=== PATIENT | female | born 1960 | race Asian ===

== ENCOUNTER → 2018-08-20 12:34 | Outpatient (CLI) | payer OTHER, SELFPAY ==
--- NOTE | 2018-08-20 | DI.MG.S_ITS ---
BILATERAL DIGITAL SCREENING MAMMOGRAM 3D/2D WITH CAD: 08/20/2018 CLINICAL: Routine screening. Comparison is made to exams dated: 03/17/2016 mammogram, 01/14/2014 mammogram, and 12/31/2012 mammogram - [facility]. There are scattered fibroglandular elements in both breasts. Current study was also evaluated with a Computer Aided Detection (CAD) system. No significant masses, calcifications, or other findings are seen in either breast. There has been no significant interval change. IMPRESSION: NEGATIVE There is no mammographic evidence of malignancy. A 1 year screening mammogram is recommended. This exam was interpreted at Station ID: [id number]. NOTE: For mammograms, a report in lay terms will be sent to the patient. Approximately 15% of breast malignancies will not be visualized mammographically. In the management of a palpable breast mass, a negative mammogram must not discourage biopsy of a clinically suspicious lesion. Electronically Signed By: Cain izaguirre/ahmet:08/20/2018 16:40:29 letter sent: Normal Exam ACR BI-RADS Category 1: Negative [id number]
== END ==
PROVIDERS: Visit Provider Family Medicine
DX: Z12.31 Encounter for screening mammogram for malignant neoplasm of breast (principal)
CPT/HCPCS: 77063; 77067

== ENCOUNTER 2019-03-12 12:36 | Emergency (ER) | payer OTHER, SELFPAY ==
[2019-03-12 13:26] VITALS: BP 106/77; PULSE 79; RESP 16; TEMP 36.8; O2SAT 97
--- NOTE | 2019-03-12 13:26 | ED.SKABFB ---
HPI - Skin/Abscess/Foreign Bdy <Bina Nichole PA-C - Last Filed: 03/12/19 15:00> General Chief complaint: Skin/Abscess/Foreign Body Stated complaint: INFECTION AFTER SURGERY Time Seen by Provider: 03/12/19 13:16 Source: patient and family Mode of arrival: Ambulatory Limitations: no limitations History of Present Illness HPI narrative: This 59 year old female was sent to ED for possible surgical wound infection. Every 4 or 5 months she has stones and sludge removed from her liver due to chronic pyogenic cholangitis. This is done through interventional radiology. She last had this done a few days ago, removed her bandage this morning when showering and noted that the wound looked somewhat red, and when she pressed on it she was able to express some pus. She states other than the wound being slightly more tender than it usually is after this procedure, she has not noted any problems. She has not noted any fever. The site is a little bit itchy. She has been feeling at baseline aside from above. She spoke with her IR who does procedures regularly and was advised to come to ED, likely needing IV Bactrim. She does have oral Bactrim at home, states that she did miss some doses of this, took 1 tab yesterday, 1/2 this a.m. Notes multiple antibiotic allergies (on her list allergies include vancomycin, ofloxacin, and penicillin). Related Data Home Medications Medication Instructions Recorded Confirmed cetirizine 10 mg PO QPM #0 02/03/17 fluticasone propionate [Flonase 1 spray INTRANASAL QDAY #0 02/03/17 Allergy Relief] sulfamethoxazole-trimethoprim 1 tab PO BID #0 02/03/17 Allergies Allergy/AdvReac Type Severity Reaction Status Date / Time acetaminophen [ACETAMINOPHEN] Allergy Unknown Unverified 07/26/17 12:48 codeine [CODEINE] Allergy Unknown Unverified 07/26/17 12:48 ibuprofen [IBUPROFEN] Allergy Unknown Unverified 07/26/17 12:48 ofloxacin [OFLOXACIN] Allergy Unknown Unverified 07/26/17 12:48 Penicillins [PENICILLINS] Allergy Unknown Unverified 07/26/17 12:48 vancomycin [VANCOMYCIN] Allergy Unknown Unverified 07/26/17 12:48 Review of Systems <Bina Nichole PA-C - Last Filed: 03/12/19 15:00> Review of Systems ROS Unobtainable: All systems reviewed & are unremarkable except as noted in HPI and below Patient History <Bina Nichole PA-C - Last Filed: 03/12/19 15:00> Medical History (Updated 03/12/19 @ 14:45 by Bina Nichole PA-C) Recurrent pyogenic cholangitis (Chronic) Surgical History (Updated 03/12/19 @ 14:04 by Bina Nichole PA-C) History of surgery of liver (Chronic) Social History (Updated 03/12/19 @ 14:05 by Bina Nichole PA-C) additional social history: Non smoker, lives at home with Exam <Bina Nichole PA-C - Last Filed: 03/12/19 15:00> Narrative Exam Narrative: GENERAL APPEARANCE: Patient sitting comfortably, in no distress. HEENT: PERRL, EOMI, no scleral icterus NECK: Supple LUNGS: Clear to auscultation bilaterally. HEART: Rate and rhythm regular, normal S1 and S2, no S3 or S4. ABDOMEN: Soft, nontender, nondistended, bowel sounds present x 4 quadrants EXTREMITIES: No edema, no cyanosis DERMATOLOGIC: Faded midline surgical scar, and on the right side there is a newer appearing surgical site with some dusky erythema to 1 1/2 cm beyond distal margin, not warm to touch, I am able to express a drop of serous drainage but no purulence drainage. This feels slightly indurated. At the borders of the dressing there is some erythema where adhesive was intact NEUROLOGIC: Alert and oriented with normal speech and coordination Initial Vital Signs Initial Vital Signs: Vital Signs Temperature 98.3 F 03/12/19 13:26 Pulse Rate 79 03/12/19 13:26 Respiratory Rate 16 03/12/19 13:26 Blood Pressure 106/77 03/12/19 13:26 Pulse Oximetry 97 03/12/19 13:26 <Nhi James DO - Last Filed: 03/13/19 07:33> Initial Vital Signs Initial Vital Signs: Vital Signs Temperature 98.3 F 03/12/19 13:26 Pulse Rate 79 03/12/19 13:26 Respiratory Rate 16 03/12/19 13:26 Blood Pressure 106/77 03/12/19 13:26 Pulse Oximetry 97 03/12/19 13:26 Course <Bina Nichole PA-C - Last Filed: 03/12/19 15:00> Course Additional Information: I spoke with patient's IR who does her procedures and referred her here (Dr. Mcdaniels) and reviewed findings, VS. He is agreeable with plan to tx with oral abx. Patient is agreeable with plan as well Vital Signs Vital signs: Vital Signs - 8 hr 03/12/19 13:26 Temperature 98.3 F Pulse Rate 79 Respiratory Rate 16 Blood Pressure 106/77 Pulse Oximetry 97 <Nhi James DO - Last Filed: 03/13/19 07:33> Vital Signs Vital signs: Vital Signs - 8 hr 03/12/19 13:26 Temperature 98.3 F Pulse Rate 79 Respiratory Rate 16 Blood Pressure 106/77 Pulse Oximetry 97 MDM - Skin/Abscess/Foreign Bdy <Bina Nichole PA-C - Last Filed: 03/12/19 15:00> Lab Data Labs: Point of Care Testing Stool Occult Blood Positive <Nhi James DO - Last Filed: 03/13/19 07:33> Lab Data Labs: Point of Care Testing Stool Occult Blood Positive Discharge Plan Departure Patient Disposition: Home Clinical Impression: Cellulitis Qualifiers: Site of cellulitis: trunk Site of cellulitis of trunk: abdominal wall Qualified Code(s): L03.311 - Cellulitis of abdominal wall Discharge Date/Time: 03/12/19 14:55 Instructions: DI for Cellulitis -- Adult Activity Restrictions/Additional Instructions: It does look like you have a bit of skin infection around your surgical wound site today. I think that you got most of the pus out of this already, and I do not see anything else to drain right now. Please put a warm pack on it a few times a day to help express any drainage that may remain. Please restart your Septra that you already have, but take 1 pill twice daily, and we recommend that you have this rechecked either with your primary care provider or Dr. Mcdaniels in a few days as it will take about 72 hours to start to see the response (plan to take this for 7-10 days). If you have any acutely worsening symptoms in the interim such as worsening pain, swelling, rapidly spreading redness or new fever, you should return to the emergency department right away. Please remember to avoid touching or manipulating the wound at all, it is okay to continue using some antibiotic ointment if it helps the itching. Your skin was also reacting to the bandage and adhesive so try to avoid using any tape and adhesive where possible Prescriptions: No Action cetirizine 10 MG tablet 10 mg PO QPM Qty: 0 RF: 0 sulfamethoxazole-trimethoprim 800 MG/160 MG tablet 1 tab PO BID Qty: 0 RF: 0 fluticasone propionate [Flonase Allergy Relief] 9.9 ML spray,suspension 1 spray Intranasal QDAY Qty: 0 RF: 0 Referrals: Tj Mcdaniels M.D. [Other] Harmony Ashby DO [Non-Staff] -
--- NOTE | 2019-03-12 13:42 | PC.NURSE ---
[facility]. Has concerns of infection. skin appears irritated from bandage, patient reports itching at area of adhesive. patient reports squeezing out some puss from site earlier. Told to come in for abx. Denies fevers or chills. Area of redness noted to site, not hot or warm to touch. Small amount of serous drainage noted on gauze.
== END 2019-03-12 14:55 | disposition home or self-care (01) ==
PROVIDERS: Emergency Provider Internal Medicine
DX: L03.311 Cellulitis of abdominal wall (principal); Z98.890 Other specified postprocedural states
CPT/HCPCS: 82272; 99282; 99283

== ENCOUNTER → 2021-01-25 14:59 | Outpatient (CLI) | payer OTHER, SELFPAY ==
--- NOTE | 2021-01-25 | DI.MG.S_ITS ---
BILATERAL DIGITAL SCREENING MAMMOGRAM 3D/2D WITH CAD: 01/25/2021 CLINICAL: Routine screening. Comparison is made to exams dated: 08/20/2018 mammogram - [facility], 03/17/2016 mammogram, and 01/14/2014 mammogram - [facility]. There are scattered fibroglandular elements in both breasts. Current study was also evaluated with a Computer Aided Detection (CAD) system. There is a new 0.6 cm irregular asymmetry in the left breast at 1 o'clock middle depth 6.6 cm from the nipple. No other significant masses, calcifications, or other findings are seen in either breast. IMPRESSION: INCOMPLETE: NEEDS ADDITIONAL IMAGING EVALUATION The new 0.6 cm irregular asymmetry in the left breast is indeterminate. Additional views with possible ultrasound are recommended. This exam was interpreted at Station ID: [id number]. NOTE: For mammograms, a report in lay terms will be sent to the patient. Approximately 15% of breast malignancies will not be visualized mammographically. In the management of a palpable breast mass, a negative mammogram must not discourage biopsy of a clinically suspicious lesion. Electronically Signed By: Rickie Yañez acr/:01/25/2021 15:51:41 letter sent: Additional Imaging Needed ACR BI-RADS Category 0: Incomplete 3340F
== END ==
PROVIDERS: PCP Family Medicine; Referring Provider Family Medicine; Visit Provider Family Medicine
DX: Z12.31 Encounter for screening mammogram for malignant neoplasm of breast (principal)
CPT/HCPCS: 77063; 77067

== ENCOUNTER → 2021-02-22 11:58 | Outpatient (CLI) | payer OTHER, SELFPAY ==
--- NOTE | 2021-02-22 | DI.US.S_ITS ---
LIMITED ULTRASOUND OF LEFT BREAST AND AXILLA: 02/22/2021 CLINICAL: Patient returns today to evaluate a focal asymmetry in the left breast. Comparison is made to exams dated: 02/22/2021 mammogram, 01/25/2021 mammogram, 08/20/2018 mammogram - [facility], and 03/17/2016 mammogram - [facility]. Color flow and real-time ultrasound of the left breast 1-2 o'clock, and axilla regions were performed on the areas of interest. There is a 0.6 cm x 0.3 cm x 0.3 cm oval cyst in the left breast at 2 o'clock posterior depth. This oval cyst is hypoechoic with internal echoes. This likely correlates with mammography findings. Color flow imaging demonstrates that there is no vascularity present. IMPRESSION: PROBABLY BENIGN The 0.6 cm x 0.3 cm x 0.3 cm oval cyst in the left breast likely represents a complicated cyst and is probably benign. Follow-up mammogram and ultrasound in 6 months are recommended. A follow-up mammogram and an ultrasound in 6 months are recommended to demonstrate stability. This exam was interpreted at Station ID: [id number]. Electronically Signed By: Ren Roman M.D. ddmello/:02/22/2021 13:15:05 letter sent: Followup Recommended Ultrasound BI-RADS: 3 Probably benign
--- NOTE | 2021-02-22 | DI.MG.S_ITS ---
UNILATERAL LEFT DIGITAL DIAGNOSTIC MAMMOGRAM 3D/2D WITH ADDITIONAL VIEWS: 02/22/2021 CLINICAL: Additional evaluation requested from prior study. Comparison is made to exams dated: 01/25/2021 mammogram, 08/20/2018 mammogram - [facility], and 03/17/2016 mammogram - [facility]. There are scattered fibroglandular elements in left breast. There is an oval low density focal asymmetry with an indistinct and circumscribed margin in the left breast at 2 o'clock middle depth. This is not significantly changed compared to prior studies. No other significant masses or calcifications are seen in the breast. IMPRESSION: INCOMPLETE: NEEDS ADDITIONAL IMAGING EVALUATION The oval low density focal asymmetry in the left breast is indeterminate. An ultrasound is recommended. Ultrasound will be performed immediately following the current exam. This exam was interpreted at Station ID: [id number]. NOTE: For mammograms, a report in lay terms will be sent to the patient. Approximately 15% of breast malignancies will not be visualized mammographically. In the management of a palpable breast mass, a negative mammogram must not discourage biopsy of a clinically suspicious lesion. Electronically Signed By: Ren Roman M.D. ddp/:02/22/2021 12:49:53 ACR BI-RADS Category 0: Incomplete 3340F
== END ==
PROVIDERS: PCP Family Medicine; Referring Provider Family Medicine; Visit Provider Family Medicine
DX: R92.8 Other abnormal and inconclusive findings on diagnostic imaging of breast (principal); N60.02 Solitary cyst of left breast
CPT/HCPCS: 76642; 77065; G0279

== ENCOUNTER → 2021-09-30 13:32 | Outpatient (CLI) | payer OTHER, SELFPAY ==
--- NOTE | 2021-09-30 | DI.US.S_ITS ---
LIMITED ULTRASOUND OF LEFT BREAST: 09/30/2021 CLINICAL: 6 month follow-up of cysts. Comparison is made to exams dated: 09/30/2021 mammogram, 02/22/2021 ultrasound, 02/22/2021 mammogram, 01/25/2021 mammogram, 08/20/2018 mammogram - [facility], and 03/17/2016 mammogram - [facility]. Color flow and real-time ultrasound of the left breast 1 o'clock region were performed. Siu scale images of the real-time examination were reviewed. There is a 0.7 cm x 0.3 cm x 0.3 cm oval complicated cyst in the left breast at 1 o'clock posterior depth 5 cm from the nipple. This oval complicated cyst displays internal echoes. This abnormality is not significantly changed and correlates with mammography findings. Color flow imaging demonstrates that there is no vascularity present. IMPRESSION: PROBABLY BENIGN Stable 0.7 cm complicated cyst in the left breast likely represents a complicated cyst and is probably benign. A follow-up mammogram and an ultrasound in 6 months is recommended to demonstrate stability. Patient will also be due for right mammogram at that time. Exam findings were conveyed to the patient. This exam was interpreted at Station ID: [id number]. Electronically Signed By: Dhruv Carlos M.D. [facility] [place]:09/30/2021 14:45:22 letter sent: Followup Recommended Ultrasound BI-RADS: 3 Probably benign
--- NOTE | 2021-09-30 | DI.MG.S_ITS ---
UNILATERAL LEFT DIGITAL DIAGNOSTIC MAMMOGRAM 3D/2D SHORT-TERM FOLLOW-UP: 09/30/2021 CLINICAL: Short term follow up for the left breast. Comparison is made to exams dated: 02/22/2021 mammogram, 01/25/2021 mammogram, 08/20/2018 mammogram - [facility], and 03/17/2016 mammogram - [facility]. There are scattered fibroglandular elements in left breast. There is an oval focal asymmetry with an indistinct and circumscribed margin in the left breast at 2 o'clock middle depth. This is not significantly changed. No other significant masses or calcifications are seen in the breast. IMPRESSION: INCOMPLETE: NEEDS ADDITIONAL IMAGING EVALUATION Focal asymmetry in the left breast is indeterminate. A targeted ultrasound is recommended and will immediately follow. This exam was interpreted at Station ID: [id number]. NOTE: For mammograms, a report in lay terms will be sent to the patient. Approximately 15% of breast malignancies will not be visualized mammographically. In the management of a palpable breast mass, a negative mammogram must not discourage biopsy of a clinically suspicious lesion. Electronically Signed By: Dhruv Carlos M.D. slc/:09/30/2021 13:57:31 ACR BI-RADS Category 0: Incomplete 3340F
== END ==
PROVIDERS: PCP Family Medicine; Referring Provider Family Medicine; Visit Provider Family Medicine
DX: R92.8 Other abnormal and inconclusive findings on diagnostic imaging of breast (principal); N60.02 Solitary cyst of left breast
CPT/HCPCS: 76642; 77065; G0279

== ENCOUNTER → 2022-05-24 11:57 | Outpatient (CLI) | payer OTHER, SELFPAY ==
--- NOTE | 2022-05-24 | DI.MG.S_ITS ---
BILATERAL DIGITAL DIAGNOSTIC MAMMOGRAM 3D/2D: 05/24/2022 CLINICAL: Short term follow up of the left breast, due for bilateral imaging. Comparison is made to exams dated: 09/30/2021 ultrasound, 09/30/2021 mammogram, 02/22/2021 ultrasound, 02/22/2021 mammogram, and 01/25/2021 mammogram - [facility]. There are scattered areas of fibroglandular density in both breasts (category b / 25%-50% glandular tissue). There is an oval focal asymmetry in the left breast at 1 o'clock middle depth. This is not significantly changed. No other significant masses, calcifications, or other findings are seen in either breast. IMPRESSION: INCOMPLETE: NEEDS ADDITIONAL IMAGING EVALUATION The oval focal asymmetry in the left breast is indeterminate. A targeted ultrasound is recommended and will immediately follow. Based on the Tyrer Cuzick model (a risk assessment model) the patient's lifetime risk is 4.8% and her 10 year risk is 2.1%. According to the ACR, ACS, and NCCN guidelines, an annual breast MRI exam along with mammogram is recommended if the patient's lifetime risk is 20% or greater. This exam was interpreted at Station ID: [id number]. NOTE: For mammograms, a report in lay terms will be sent to the patient. Approximately 15% of breast malignancies will not be visualized mammographically. In the management of a palpable breast mass, a negative mammogram must not discourage biopsy of a clinically suspicious lesion. Electronically Signed By: Dhruv Carlos M.D. slc/:05/24/2022 12:22:22 ACR BI-RADS Category 0: Incomplete 3340F
--- NOTE | 2022-05-24 | DI.US.S_ITS ---
LIMITED ULTRASOUND OF LEFT BREAST AND AXILLA: 05/24/2022 CLINICAL: Patient returns today to evaluate a focal asymmetry in the left breast. Comparison is made to exams dated: 05/24/2022 mammogram, 09/30/2021 ultrasound, 09/30/2021 mammogram, 02/22/2021 mammogram, 02/22/2021 ultrasound, and 01/25/2021 mammogram - [facility]. Color flow and real-time ultrasound of the left breast axilla were performed. Siu scale images of the real-time examination were reviewed. There is a 1.1 cm x 0.8 cm x 0.3 cm oval cyst in the left breast at 1 o'clock posterior depth 5 cm from the nipple. This oval cyst displays internal echoes. This abnormality is more prominent. Color flow imaging demonstrates that there is no vascularity present. Left axillary lymph nodes are within normal limits. IMPRESSION: PROBABLY BENIGN The 1.1 cm complicated cyst in the left breast is probably benign. A follow-up ultrasound in 6 months is recommended to demonstrate stability. Left axillary lymph nodes are within normal limits. Exam findings were conveyed to the patient. This exam was interpreted at Station ID: [id number]. Electronically Signed By: Dhruv Carlos M.D. slc/:05/24/2022 14:01:37 letter sent: Followup Recommended Ultrasound BI-RADS: 3 Probably benign
== END ==
PROVIDERS: PCP Family Medicine; Referring Provider Family Medicine; Visit Provider Family Medicine
DX: R92.8 Other abnormal and inconclusive findings on diagnostic imaging of breast (principal); N60.02 Solitary cyst of left breast
CPT/HCPCS: 76642; 77066; G0279

== ENCOUNTER → 2024-06-12 13:28 | Outpatient (CLI) | payer MEDICARE, SELFPAY ==
--- NOTE | 2024-06-12 13:37 | DI.MG.S_ITS ---
BILATERAL DIGITAL DIAGNOSTIC MAMMOGRAM 3D/2D SHORT-TERM FOLLOW-UP: 06/12/2024 CLINICAL: Short term follow up of the left breast, due for bilateral imaging. Comparison is made to exams dated: 05/24/2022 mammogram, 09/30/2021 mammogram, 02/22/2021 mammogram, and 01/25/2021 mammogram - [facility]. There are scattered areas of fibroglandular density (category b / 25%-50% glandular tissue). Redemonstration of previously described oval focal asymmetry in the left breast at 1 o'clock middle depth. This is not significantly changed. No other significant masses, calcifications, or other findings are seen in either breast. IMPRESSION: INCOMPLETE: NEED ADDITIONAL IMAGING EVALUATION The oval focal asymmetry in the left breast is indeterminate. An ultrasound is recommended for further evaluation and is scheduled to immediately follow this examination. Based on the Tyrer Cuzick model (a risk assessment model) the patient's lifetime risk is 4.5% and her 10 year risk is 2.1%. According to the ACR, ACS, and NCCN guidelines, an annual breast MRI exam along with mammogram is recommended if the patient's lifetime risk is 20% or greater. This exam was interpreted at Station ID: [id number]. NOTE: For mammograms, a report in lay terms will be sent to the patient. Approximately 15% of breast malignancies will not be visualized mammographically. In the management of a palpable breast mass, a negative mammogram must not discourage biopsy of a clinically suspicious lesion. Electronically Signed By: Cain William M.D. aty/:06/12/2024 14:09:31 letter sent: Additional Imaging Needed ACR BI-RADS Category 0: Incomplete: Need Additional Imaging Evaluation
--- NOTE | 2024-06-12 13:38 | DI.US.S_ITS ---
LIMITED ULTRASOUND OF LEFT BREAST AND AXILLA: 06/12/2024 CLINICAL: Short term follow up for the left breast. Comparison is made to exams dated: 06/12/2024 mammogram, 05/24/2022 ultrasound, 05/24/2022 mammogram, 09/30/2021 ultrasound, 09/30/2021 mammogram, and 02/22/2021 ultrasound - [facility]. Color flow and real-time ultrasound of the left breast 1 o'clock, and axilla regions were performed. Siu scale images of the real-time examination were reviewed. There is a 0.7 cm x 0.4 cm x 0.2 cm oval cyst in the left breast at 1 o'clock posterior depth 5 cm from the nipple. This oval cyst is hypoechoic with internal echoes and no posterior acoustic shadowing or enhancement. This abnormality is not significantly changed. Color flow imaging demonstrates that there is no vascularity present. There also is a new 0.3 cm x 0.3 cm x 0.3 cm oval mass in the left breast at 1 o'clock posterior depth 5 cm from the nipple. This oval mass is hypoechoic with mild peripheral echogenic fat. This correlates as an incidental finding. Color flow imaging demonstrates that there is no vascularity present. IMPRESSION: PROBABLY BENIGN The 0.7 cm x 0.4 cm x 0.2 cm oval cyst in the left breast at 1 o'clock posterior depth likely represents a complicated cyst and is probably benign. The new 0.3 cm x 0.3 cm x 0.3 cm oval mass in the left breast at 1 o'clock posterior depth is consistent with a fat lobule/focal fibrofatty breast tissue or fat necrosis and is probably benign. A follow-up left ultrasound in 6 months is recommended to demonstrate stability. Findings and recommendations were conveyed to the patient during today's evaluation. This exam was interpreted at Station ID: [id number]. Electronically Signed By: Cain William M.D. aty/:06/12/2024 14:52:22 letter sent: Followup Recommended ACR BI-RADS Category 3: Probably Benign
== END ==
PROVIDERS: PCP Family Medicine; Referring Provider Nurse Practitioner Family; Visit Provider Nurse Practitioner Family
DX: R92.8 Other abnormal and inconclusive findings on diagnostic imaging of breast (principal); N63.21 Unspecified lump in the left breast, upper outer quadrant; N60.02 Solitary cyst of left breast
CPT/HCPCS: 76642; 77066; G0279

== ENCOUNTER → 2024-07-31 10:38 | Outpatient (CLI) | payer MEDICARE, SELFPAY ==
--- NOTE | 2024-07-31 10:39 | DI.RAD.S_ITS ---
PROCEDURE: XR DEXA AXIAL SKELETON INDICATIONS: AT RISK FOR OSTEOPOROSIS/SCREEN FOR OSTEOPOROSIS COMPARISON: None. FINDINGS: Lumbar Spine: Bone mineral density 0.633 g/cm2, T score -3.8. Left Femoral Neck: Bone mineral density 0.510 g/cm2, T score -3.1. Left Hip: Bone mineral density 0.659 g/cm2, T score -2.3. Fracture Risk Calculation (when applicable): Not calculated secondary to osteoporosis. (T score greater or equal to -1.0 to: NORMAL) (T score from -1.1 to -2.4: OSTEOPENIA) (T score less than or equal to -2.5: OSTEOPOROSIS) IMPRESSION: Osteoporosis by WHO classification. Follow-up guidelines as follows: Osteoporosis: Consider a repeat DEXA and Vertebral Fracture Assessment (VFA) exam in 2 years or sooner if medically necessary, to reassess this patient's status. Osteopenia: Consider a repeat DEXA in 2-3 years to reassess this patient's status, or if there is a new clinical indication. Normal: Consider a repeat DEXA in 5 years or sooner, or if there is a new clinical indication. All treatment decisions require clinical judgment and consideration of individual patient factors, including patient preferences, comorbidities, previous drug use, risk factors not captured in the FRAX model (e.g., frailty, falls, vitamin D deficiency, increased bone turnover, interval significant decline in bone density ) and possible under- or over-estimation of fracture risk by FRAX. In addition, the NOF Guide recommends that FDA-approved medical therapies be considered in postmenopausal women and men age >= 50 years with a: * Hip or vertebral (clinical or morphometric) fracture * T-score of <=-2.5 at the spine or hip * Ten-year fracture probability by FRAX of >= 3% for hip fracture or >=20% for major osteoporotic fracture. Dictated by: Abraham Yadav M.D. on 07/31/2024 at 16:35 Approved by: Abraham Yadav M.D. on 07/31/2024 at 16:36
== END ==
LOC: RAD 10:38
PROVIDERS: PCP Family Medicine; Referring Provider Nurse Practitioner Family; Visit Provider Nurse Practitioner Family
DX: M81.0 Age-related osteoporosis without current pathological fracture (principal); Z78.0 Asymptomatic menopausal state; Z91.89 Other specified personal risk factors, not elsewhere classified
CPT/HCPCS: 77080